=== PATIENT | female | born 1985 | race Caucasian/White ===

== ENCOUNTER → 2017-11-06 13:44 | Outpatient (CLI) | payer BC, SELFPAY ==
[2017-11-06 17:45] LABS: Chlamydia Trachomatis by PCR Negative (Negative); Neisserai gonorrhoeae by PCR Negative (Negative); Probe Check PASS; Sample Adequacy Control PASS; Specimen Processing Control PASS
[2017-11-12 14:38] LABS: HPV Reflexed? NOT INDICATED
== END ==
PROVIDERS: Visit Provider Obstetrics & Gynecology
DX: Z12.4 Encounter for screening for malignant neoplasm of cervix (principal); Z11.3 Encounter for screening for infections with a predominantly sexual mode of transmission
CPT/HCPCS: 87491; 87591; 88175; G0145

== ENCOUNTER → 2017-11-28 11:23 | Outpatient (CLI) | payer BC, SELFPAY ==
[2017-11-28 15:40] LABS: Absolute Lymphocyte Count 2.04 X10^3/ul (0.83-4.51); Absolute Neutrophil Count 6.6 X10^3/uL (2.0-7.7); Basophil# 0.03 X10^3/uL; Basophil% 0.3 % (0-1); Hematocrit 36.3 % (37-47); Hemoglobin 12.3 g/dl (12.0-15.0); Lymphocyte # 2.04 X10^3/ul (4.0); Lymphocyte % 20.7 % (19-41); Mean Corp Hgb Conc 33.9 g/gl (32-36); Mean Corpuscular Hgb 30.4 pg (27.0-32.0); Mean Corpuscular Volume 89.6 fL (81-99); Mean Platelet Vol. 10.8 fl (6.2-12.0); Monocyte% 10.1 % (0-10); Neutrophil # 6.58 X10^3/uL (2.7-7.7); Neutrophil % 66.7 % (47-70); POSITIVE COUNT NO; POSITIVE DIFFERENTIAL NO; POSITIVE MORPHOLOGY NO; Platelet Count 250 K/mm3 (150-450); RBC Distribution Width CV 13.4 % (11.6-14.6); RBC Distribution Width SD 43.5 fl (35.1-43.9); Red Blood Count 4.05 M/mm3 (4.2-5.4); White Blood Count 9.9 K/mm3 (4.4-11.0)
[2017-11-28 15:56] LABS: Thyroid Stim Hormone (TSH) 0.84 uIU/mL (0.358-3.74)
[2017-11-28 17:55] LABS: Color, Urine Yellow (Yellow); Glucose, Dipstick Normal (Normal); Ketone-Dipstick Negative (Negative); Leukocyte Esterase-Dipstick 25 /ul (Negative); Nitrite-Dipstick Negative (Negative); Occult Blood-Urine 10 /ul (Negative); Protein-Dipstick Negative (Negative); Specific Gravity, Urine 1.015 (1.002-1.030); Urine Bilirubin Dipstick Negative (Negative); Urine Clarity Sl. Cloudy (Clear); Urine Urobilinogen Normal (Normal)
[2017-11-28 18:11] LABS: Amphetamine Urine VISTA NEGATIVE (<1000 ng/mL); Barbiturate Urine VISTA NEGATIVE (< 200 ng/mL); Benzodiazepine Urine VISTA NEGATIVE (< 200 ng/mL); Cocaine Urine VISTA NEGATIVE (< 300 ng/mL); Ecstacy Urine VISTA NEGATIVE (< 500 ng/mL); Methadone Urine VISTA NEGATIVE (< 300 ng/mL); PCP Urine VISTA NEGATIVE (< 25 ng/mL); THC Urine VISTA NEGATIVE (< 50 ng/mL); Vista UDS pH Range 6
[2017-11-29 02:55] LABS: Prenatal RPR NONREACTIVE (NONREACTIVE)
[2017-11-29 09:34] LABS: HIV - WCH Non-Reactive (Nonreactive); Rubella IgG 474.6 IU/mL
[2017-11-30 08:58] LABS: HEPATITIS B SURFACE AG Negative (Negative); Hep C Antibodies 0.2 s/co ratio (0.0-0.9)
== END ==
PROVIDERS: Visit Provider Obstetrics & Gynecology
DX: Z34.81 Encounter for supervision of other normal pregnancy, first trimester (principal)
CPT/HCPCS: 36415; 80307; 81002; 84443; 85025; 86703; 86762; 86803; 87340

== ENCOUNTER → 2018-04-10 09:13 | Outpatient (CLI) | payer BC, SELFPAY ==
[2018-04-10 10:36] LABS: Hemoglobin 11.9 g/dl (12.0-15.0); Mean Corp Hgb Conc 33.1 g/gl (32-36); Mean Corpuscular Hgb 30.3 pg (27.0-32.0); Mean Corpuscular Volume 91.6 fL (81-99); Mean Platelet Vol. 9.6 fl (6.2-12.0); Platelet Count 200 K/mm3 (150-450); RBC Distribution Width CV 13.5 % (11.6-14.6); RBC Distribution Width SD 44.7 fl (35.1-43.9); Red Blood Count 3.93 M/mm3 (4.2-5.4); White Blood Count 8.9 K/mm3 (4.4-11.0)
[2018-04-10 10:37] LABS: Scan Indicated on CBC? Y/N NO
[2018-04-10 10:40] LABS: Glucose Challenge Gest 1H 50g 129 mg/dL (70-140)
== END ==
PROVIDERS: Visit Provider Obstetrics & Gynecology
DX: Z34.82 Encounter for supervision of other normal pregnancy, second trimester (principal)
CPT/HCPCS: 36415; 82950; 85027

== ENCOUNTER 2018-06-07 15:49 | Outpatient (CLI) | payer BC, SELFPAY ==
[2018-06-07 15:59] VITALS: BMI 42.5
--- NOTE | 2018-06-07 18:43 | OB.TRI.NOTE ---
History of Present Illness Date of Service: 06/07/18 Was patient seen by the physician?: No Reason For Visit: NST Date of Service: 06/07/18 Final TORY: 07/07/18 Final TORY Source: US <20 weeks Gestational age: 35 Weeks and 5 Days History of Present Illness: Polyhydramnios Allergies No Known Allergies Allergy (Verified 06/07/18 16:01) Physical Exam General: Alert, Oriented x3, Cooperative, No apparent distress Abdomen: Soft, Non Tender, Non-Distended, Gravid, Appropriate for Gestational Age Extremities:: No edema Neurological: Neuro grossly intact [employer]: Normal external genitalia Estimated gestational size: Appropriate for gestational size NST - FHR Rate Baby A Baseline: 130s Variability:: Moderate Accelerations:: 15 x 15 Decelerations:: None NST Reactive:: Yes, Appropriate for gestational age FHR Category:: Category I Uterine Activity:: irregular Impression/Plan Scheduled NST for polyhydramnios. NST CAT 1, reassuring. Followup as scheduled.
== END 2018-06-07 16:40 | disposition home or self-care (01) ==
LOC: WPOUT 15:50 → WP 15:51
PROVIDERS: Family Provider Family Medicine; PCP Family Medicine; Visit Provider Obstetrics & Gynecology
DX: O40.3XX0 Polyhydramnios, third trimester, not applicable or unspecified (principal); Z3A.35 35 weeks gestation of pregnancy
CPT/HCPCS: 59025

== ENCOUNTER → 2018-06-10 16:55 | Outpatient (CLI) | payer BC, SELFPAY ==
[2018-06-10 19:53] LABS: Group B Strep DNA By PCR Negative (Negative); Internal Control PASS; Probe Check PASS; Specimen Processing Control PASS
== END ==
PROVIDERS: Visit Provider Obstetrics & Gynecology
DX: Z36.85 Encounter for antenatal screening for Streptococcus B (principal)
CPT/HCPCS: 87081; 87653

== ENCOUNTER 2018-06-26 09:50 | Outpatient (CLI) | payer BC, SELFPAY ==
[2018-06-26 10:07] VITALS: BMI 44.6
--- NOTE | 2018-06-26 23:55 | OB.TRI.NOTE ---
- Problem List (1) 38 weeks gestation of Status: Acute (2) Decreased movement Status: Acute Qualifiers: Fetus number: single or unspecified fetus Trimester: third trimester Qualified Code(s): O36.8130 - Decreased movements, third trimester, not applicable or unspecified History of Present Illness Date of Service: 06/26/18 Was patient seen by the physician?: No Reason For Visit: DECREASE MOVEMENT Date of Service: 06/26/18 Final TORY: 07/07/18 Final TORY Source: US <20 weeks Gestational age: 38 Weeks and 3 Days Allergies No Known Allergies Allergy (Verified 06/07/18 16:01) NST - FHR Rate Baby A Baseline: 135 Variability:: Moderate Accelerations:: 15 x 15 Decelerations:: None NST Reactive:: Yes FHR Category:: Category I Uterine Activity:: 1/10 min Impression/Plan 33yo G1 @ 38 3/7wga with Cat I FHR - status reassuring -No labor complaints -d/c home
== END 2018-06-26 11:05 | disposition home or self-care (01) ==
LOC: WPOUT 09:52 → WP 09:53
PROVIDERS: Family Provider Family Medicine; PCP Family Medicine; Referring Provider Obstetrics & Gynecology; Visit Provider Obstetrics & Gynecology
DX: O36.8130 Decreased fetal movements, third trimester, not applicable or unspecified (principal); Z3A.38 38 weeks gestation of pregnancy
CPT/HCPCS: 59025; 59050; 99218; G0378

== ENCOUNTER 2018-07-02 16:00 | Inpatient (IN) | payer BC, SELFPAY ==
[2018-07-01 11:43] VITALS: BMI 44.5
[2018-07-01 11:55] LABS: ROM Internal Control Test YES-OK TO RESULT pt. (Internal QC)
[2018-07-01 11:56] LABS: ROM Patient Test POSITIVE (Negative)
[2018-07-01] MEDS: Lactated Ringers 1,000 ML 50 ML IV ×2 (12:40→19:43)
[2018-07-01 12:49] LABS: Hematocrit 40.8 % (37-47); Hemoglobin 13.8 g/dl (12.0-15.0); Mean Corp Hgb Conc 33.8 g/gl (32-36); Mean Corpuscular Hgb 30.5 pg (27.0-32.0); Mean Corpuscular Volume 90.3 fL (81-99); Mean Platelet Vol. 10.8 fl (6.2-12.0); Platelet Count 205 K/mm3 (150-450); RBC Distribution Width CV 13.6 % (11.6-14.6); RBC Distribution Width SD 44.4 fl (35.1-43.9); Red Blood Count 4.52 M/mm3 (4.2-5.4); White Blood Count 13.7 K/mm3 (4.4-11.0)
[2018-07-01 12:50] LABS: Scan Indicated on CBC? Y/N NO
[2018-07-01] MEDS: 0.9% Saline Lock 10 ML Syringe IV (14:10)
[2018-07-01] MEDS: Oxytocin 30 units/NS 500 ml 30 UNITS/500 ML IV.SOLN IV (15:32)
[2018-07-01] MEDS: fentaNYL-bupivacaine (epidural) 100 ML BAG EPIDURAL ×2 (19:36→23:53)
--- NOTE | 2018-07-01 21:09 | PCM.PN.BLA ---
Progress Note LABOR PROGRESS NOTE 39 1/7 wk SROM Comfortable w/ epidural. AVSS low gr temp noted x one. (breathing very heavily with painful UCs at that time) Pitocin at 6 mIU/min Meconium stained fluid noted now CX /high EFM/IFM: 130-140s avg variability Accels noted. Occasional ? subtle late, variables. UCs q 2-4 mins A/P: 39 1/7 wk SROM at 0600 07/01/18 Continue pitocin augmentation. Watch tolerance of labor.
[2018-07-01] MEDS: Ondansetron 4 MG/2 ML Vial IV (23:23)
[2018-07-02] MEDS: Lactated Ringers 1,000 ML 50 ML IV (01:06)
[2018-07-02] MEDS: Amnioinfusion- 0.9% NS 1,000 ML IV.SOLN. INTRA-UTER ×2 (01:14→06:00)
[2018-07-02] MEDS: Mag Hydrox/Al Hydrox/Simeth 30 ML UDC PO (04:23)
[2018-07-02] MEDS: fentaNYL-bupivacaine (epidural) 100 ML BAG EPIDURAL (04:23)
[2018-07-02] MEDS: Oxytocin 30 units/NS 500 ml 30 UNITS/500 ML IV.SOLN 334 UNITS IV (08:23)
--- NOTE | 2018-07-02 08:35 | PCM.OB.VAG ---
Vaginal Delivery Maternal Presentation: Spontaneous Rupture of Membranes Method of Induction: Pitocin Amniotic Membrane Rupture Type: Spontaneous at home Rupture of Membrane time: 07/01/18 Amniotic Fluid Description: Clear Final TORY: 07/07/18 Final TORY Source: US <20 weeks Gestational age: 39 Weeks and 2 Days [place] doctor who attended delivery (if requested by OB): Macri Plasencia Date of Procedure: 07/02/18 Pre-Operative Diagnosis: 39 2/7 wk SROM Post-Operative Diagnosis: Same Surgery/ Procedure Performed: Spontaneous Vaginal Delivery Anesthesiologist: Georgia Sexton Type of Anesthesia: Epidural Description of Procedure: of a carrillo viable male over intact perineum Head delivered SYLVIA. OP and nares bulb suctioned at perineum. Dr Plasencia, RT and nursery nurse present for delivery due to meconium stained fluid. Mild shoulder dystocia relieved with MacRoberts maneuver, Delivery of posterior shoulder, reduction of anterior arm. Infant to peds 2/2 meconium stained fluid, poor tone and weak resp effort at . Routine venous and arterial blood gases collected. PP exam; 1st deg posterior vaginal laceration repaired to hemostatic, intact with 3-0 vicryl Placenta delivered spont expulsion, expression. 3V normal appearing. Light mec stained. Intact Pt and infant tolerated delivery well. To recovery, stable condition EBL 350 cc Presentation: Vertex, SYLVIA Placental Delivery Description: Spontaneous, Expressed Placenta Disposition: [facility] Cord Vessel Description: 3 Vessels Cord Gases drawn per routine: ABG, VBG Cord Entanglement: None Drain: Salguero to straight drain Estimated Blood Loss: 350 A gender: Male (1 minute): 8 (5 minute): 9 Episiotomy Description: None Laceration: Midline, Vaginal Extension/lac, 1st degree - repaired with single fig of 8 stitch of 3-0 vicryl Medications given after delivery: IV Pitocin Complications: None
--- NOTE | 2018-07-02 08:42 | PCM.DCVAG ---
Discharge Diet: No Restrictions Discharge Activity: May Shower, May Take a Tub Bath Additional Activity Instructions:: Nothing in the vagina for 4-6 weeks. You may return to work/school in 6 weeks. Additional Instructions: If you experience any of the following, contact your healthcare provider. Bleeding that soaks a pad every hour for 2 hours Fever 100.4 or higher Unrelieved abdominal pain Problems urinating (including inability to urinate or burning while urinating). Visual changes Severe headache Flu-like symptoms Pain or redness in one of both of your breasts Pain, warmth, tenderness or swelling in your legs, especially the calf area Frequent nausea and vomiting Symptoms of depression or anxiety If you experience any of the following, call 911 or go to the nearest Emergency Room. Chest pain Problems breathing Seizure activity Partial or complete paralysis of a body part, slurred speech, weakness or drooping of the face, or a sudden inability to walk or hold your balance Allergies/Adverse Reactions: Allergies No Known Allergies Allergy (Verified 07/01/18 11:58) Medications to take at Discharge Famotidine [Pepcid] 10 mg PO BID 06/07/18 Vits [Prenatabs FA] 1 tablet PO DAILY 06/26/18 Please Follow Up With: Julieta Krueger MD - [phone] When: Call to make an appointment with your doctor in 6 weeks. Primary Care Physician: Uday Malin MD [Primary Care Provider] - Test Results: Test results from this visit will be discussed in further detail at your follow-up appointment, if applicable. Proposed Discharge Date: 07/04/18
--- NOTE | 2018-07-02 08:43 | DCINST_ITS ---
Discharge Diet: No Restrictions Discharge Activity: May Shower, May Take a Tub Bath Additional Activity Instructions:: Nothing in the vagina for 4-6 weeks. You may return to work/school in 6 weeks. Additional Instructions: If you experience any of the following, contact your healthcare provider. * Bleeding that soaks a pad every hour for 2 hours * Fever 100.4 or higher * Unrelieved abdominal pain * Problems urinating (including inability to urinate or burning while urinating). * Visual changes * Severe headache * Flu-like symptoms * Pain or redness in one of both of your breasts * Pain, warmth, tenderness or swelling in your legs, especially the calf area * Frequent nausea and vomiting * Symptoms of depression or anxiety If you experience any of the following, call 911 or go to the nearest Emergency Room. * Chest pain * Problems breathing * Seizure activity * Partial or complete paralysis of a body part, slurred speech, weakness or drooping of the face, or a sudden inability to walk or hold your balance Allergies/Adverse Reactions: Allergies No Known Allergies Allergy (Verified 07/01/18 11:58) Medications to take at Discharge Famotidine [Pepcid] 10 mg PO BID 06/07/18 Vits [Prenatabs FA] 1 tablet PO DAILY 06/26/18 Please Follow Up With: Julieta Krueger MD - [phone] When: Call to make an appointment with your doctor in 6 weeks. Primary Care Physician: Uday Malin MD [Primary Care Provider] - Test Results: Test results from this visit will be discussed in further detail at your follow- up appointment, if applicable. Proposed Discharge Date: 07/04/18
[2018-07-02] MEDS: Oxytocin 30 units/NS 500 ml 30 UNITS/500 ML IV.SOLN 167 UNITS IV (08:53)
[2018-07-02] MEDS: Acetaminophen 500 MG Tablet 1000 MG PO ×2 (09:24→21:43)
[2018-07-02] MEDS: Prenatal Vits Tablet 1 TABLET PO (11:01)
[2018-07-02] MEDS: Famotidine 20 MG Tablet 10 MG PO (11:01)
[2018-07-02 12:30] VITALS: BP 128/68; PULSE 92; RESP 16; TEMP 36.7; O2SAT 97
[2018-07-02 17:00] VITALS: BP 134/82; PULSE 90; RESP 18; TEMP 36.3
[2018-07-02] MEDS: Ibuprofen 600 MG Tablet PO (19:44)
[2018-07-02 19:45] VITALS: BP 134/82; PULSE 98; RESP 16; TEMP 37.2; O2SAT 97
[2018-07-02 21:35] VITALS: TEMP 37
[2018-07-02 23:50] VITALS: BP 140/78; PULSE 85; RESP 16; TEMP 36.1; O2SAT 97
[2018-07-03] VITALS (8 sets, daily range): BP systolic 129–156; BP diastolic 77–88; PULSE 76–96; RESP 17–18; TEMP 36.5–36.8; O2SAT 96–100
[2018-07-03] MEDS: Ibuprofen 600 MG Tablet PO ×3 (03:44→15:47)
--- NOTE | 2018-07-03 04:09 | NURSING ---
bp 150/82 pt denies headache/visual disturbances or epigastric pain, no clonus noted, and reflexes 1+
[2018-07-03] MEDS: Acetaminophen 500 MG Tablet 1000 MG PO (06:18)
[2018-07-03 06:33] LABS: Mucous, Urine 0 SEEN /hpf (<or=2+); Squamous Epithelial Cells - UA 0 SEEN /hpf (5-10)
[2018-07-03 06:36] LABS: Hematocrit 37.6 % (37-47); Hemoglobin 12.6 g/dl (12.0-15.0); Mean Corp Hgb Conc 33.5 g/gl (32-36); Mean Corpuscular Hgb 31.2 pg (27.0-32.0); Mean Corpuscular Volume 93.1 fL (81-99); Mean Platelet Vol. 10.8 fl (6.2-12.0); Platelet Count 180 K/mm3 (150-450); RBC Distribution Width CV 13.8 % (11.6-14.6); RBC Distribution Width SD 46.1 fl (35.1-43.9); Red Blood Count 4.04 M/mm3 (4.2-5.4); White Blood Count 15.5 K/mm3 (4.4-11.0)
[2018-07-03 06:42] LABS: Color, Urine Yellow (Yellow); Glucose, Dipstick Normal (Normal); Ketone-Dipstick Negative (Negative); Leukocyte Esterase-Dipstick 500 /ul (Negative); Nitrite-Dipstick Negative (Negative); Occult Blood-Urine 250 /ul (Negative); Protein-Dipstick 30 mg/dl (Negative); Scan Indicated on CBC? Y/N NO; Urine Bilirubin Dipstick Negative (Negative); Urine Clarity Clear (Clear); Urine Urobilinogen Normal (Normal)
[2018-07-03 06:46] LABS: Protein, Urine (Random) 23.7 mg/dL (<11.9); Protein:Creat Ratio 248 mg/g CRE (0-200)
[2018-07-03 06:49] LABS: AST(SGOT) 29 U/L (15-37); Alanine Aminotransfer ALT/SGPT 22 U/L (13-56); Creatinine, Serum 0.66 mg/dL (0.55-1.02); EST Glomerular Filtration Rate 111 mL/min (>60); Est Glom Filt Rate - Afr Amer 135 mL/min (>60); Estimated Creatinine Clearance 124.59 ml/min
[2018-07-03 06:55] LABS: International Normalized Ratio 1.1; Prothrombin Time (Protime)PT. 13.7 SECONDS (11.7-14.9)
[2018-07-03 06:56] LABS: Partial Thromboplast Time 33.9 Seconds (24.1-36.2)
[2018-07-03 07:05] LABS: Bacteria RARE /hpf (None Seen); Red Blood Cells-Urine 10-25 SEEN /hpf (0-5); White Blood Cells 5-10 SEEN /hpf (0-5)
--- NOTE | 2018-07-03 08:32 | PCM.PN.OB ---
Subjective: PPD#1 Doing well. Cramping, but pain control OK. Breast feeding well. No concerns voiced. No PIH sx, but BPs labile. PIH labs done. Objective: sitting up in bed, . - Physical Exam General: Alert, Oriented x3, Cooperative, No apparent distress HEENT: Atraumatic Neck: Supple Abdomen: Soft - Fundus firm NT at inferior to umbilicus Psych/Mental Status: Normal Affect Vital Signs Temp Pulse Resp BP Pulse Ox 97.7 F L 96 18 129/80 H 100 07/03/18 08:00 07/03/18 08:00 07/03/18 08:00 07/03/18 08:00 07/03/18 08:00 Oxygen Delivery Method Room Air Weight: 132.903 kg Body Mass Index (BMI) 44.5 Intake and Output for Last 24 Hours 07/01/18 07/02/18 07/03/18 23:59 23:59 23:59 Intake Total 480 / 480 3719 / 3719 Output Total 1100 / 1100 2650 / 2650 Balance -620 / -620 1069 / 1069 Laboratory Tests Past 24 Hrs 07/03/18 07/03/18 07/03/18 06:09 06:09 06:09 WBC 15.5 H RBC 4.04 L Hgb 12.6 Hct 37.6 MCV 93.1 MCH 31.2 MCHC 33.5 RDW 13.8 RDW Differential 46.1 H Plt Count 180 MPV 10.8 PT 13.7 INR 1.1 APTT 33.9 Creatinine 0.66 Estim Creat Clear Calc 124.59 Est GFR (MDRD) Af Amer 135 Est GFR (MDRD) Non-Af 111 Uric Acid 6.0 AST 29 ALT 22 Urine Color Urine Clarity Urine pH Ur Specific [place] Urine Protein Urine Glucose (UA) Urine Ketones Urine Occult Blood Urine Nitrite Urine Bilirubin Urine Urobilinogen Ur Leukocyte Esterase Urine RBC Urine WBC Ur Squamous Epith Cells Urine Bacteria Urine Mucus U Random Total Protein Urine Creatinine Protein/Creatinin Ratio 07/03/18 07/03/18 06:09 06:09 WBC RBC Hgb Hct MCV MCH MCHC RDW RDW Differential Plt Count MPV PT INR APTT Creatinine Estim Creat Clear Calc Est GFR (MDRD) Af Amer Est GFR (MDRD) Non-Af Uric Acid AST ALT Urine Color Yellow Urine Clarity Clear Urine pH 6.0 Ur Specific [place] 1.010 Urine Protein 30 H Urine Glucose (UA) Normal Urine Ketones Negative Urine Occult Blood 250 H Urine Nitrite Negative Urine Bilirubin Negative Urine Urobilinogen Normal Ur Leukocyte Esterase 500 H Urine RBC 10-25 SEEN Urine WBC 5-10 SEEN Ur Squamous Epith Cells 0 SEEN Urine Bacteria RARE Urine Mucus 0 SEEN U Random Total Protein 23.7 H Urine Creatinine 95.40 Protein/Creatinin Ratio 248 H Medical Necessity - Tobacco Use Smoking Status: Never smoker Assessment/Plan All Active Problems 38 weeks gestation of (Acute) Decreased movement (Acute) PPD#1 Stable Continue care.
[2018-07-03] MEDS: Prenatal Vits Tablet 1 TABLET PO (10:04)
--- NOTE | 2018-07-03 14:22 | NURSING ---
agree with student's assessment
--- NOTE | 2018-07-03 21:21 | NURSING ---
Pt. BP obtained and resulted 156/85. Pt. informed this RN she had elevated pressures earlier and thinks napping will help. BP cuff placed on pt. arm and set for q15 minutes. Will reassess and take appropriate measures as needed.
--- NOTE | 2018-07-03 21:38 | NURSING ---
Pt. blood pressured reassessed with result of 139/85. Pt. continues to deny blurred vision/vision changes, headache, or stomach pain. Will obtain another BP reading around 0000.
[2018-07-03] MEDS: Famotidine 20 MG Tablet 10 MG PO (22:04)
[2018-07-04 01:55] VITALS: BP 137/86; PULSE 92; RESP 16; TEMP 36.9; O2SAT 98
[2018-07-04] MEDS: Ibuprofen 600 MG Tablet PO (02:02)
--- NOTE | 2018-07-04 07:20 | PCM.PN.OB ---
Subjective: PPD#2 Doing well. no concerns voiced. - Physical Exam General: Alert, Oriented x3, Cooperative, No apparent distress HEENT: Atraumatic Neck: Supple Abdomen: Soft - Fundus firm NT approx at umbilicus Psych/Mental Status: Normal Affect Vital Signs Temp Pulse Resp BP Pulse Ox 98.5 F 92 16 137/86 H 98 07/04/18 01:55 07/04/18 01:55 07/04/18 01:55 07/04/18 01:55 07/04/18 01:55 Oxygen Delivery Method Room Air Weight: 132.903 kg Body Mass Index (BMI) 44.5 Intake and Output for Last 24 Hours 07/02/18 07/03/18 07/04/18 23:59 23:59 23:59 Intake Total 3719 / 3719 Output Total 2650 / 2650 Balance 1069 / 1069 Medical Necessity - Tobacco Use Smoking Status: Never smoker Assessment/Plan PPD#2 Stable Dischg home today. RTO in 6 wk for pp check, prn sooner.
[2018-07-04 10:00] VITALS: BP 130/86; PULSE 86; RESP 16; TEMP 36.2
[2018-07-04 14:57] VITALS: BP 124/88; PULSE 82; RESP 16; TEMP 36.1
== END 2018-07-04 15:00 | disposition home or self-care (01) | DRG 806 ==
PROVIDERS: Obstetrics & Gynecology; Admitting Provider Obstetrics & Gynecology; Family Provider Family Medicine; PCP Family Medicine; Referring Provider Obstetrics & Gynecology; Visit Provider Obstetrics & Gynecology
DX: O99.214 Obesity complicating childbirth (principal); E66.01 Morbid (severe) obesity due to excess calories; Z68.41 Body mass index [BMI] 40.0-44.9, adult; O77.0 Labor and delivery complicated by meconium in amniotic fluid; O36.8130 Decreased fetal movements, third trimester, not applicable or unspecified; O66.0 Obstructed labor due to shoulder dystocia; O70.0 First degree perineal laceration during delivery; Z79.899 Other long term (current) drug therapy; Z3A.39 39 weeks gestation of pregnancy; Z37.0 Single live birth
CPT/HCPCS: 59025; 59050; 81001; 82565; 82570; 84112; 84156; 84450; 84460; 84550; 85027; 85610; 85730; 86850; 86900; 99218; J7030; J7120; A4216; G0378; J2405

== ENCOUNTER → 2019-01-15 17:09 | Outpatient (CLI) | payer BC, SELFPAY ==
[2019-01-15 17:52] LABS: Vitamin D,25 Hydroxy 9.6 ng/mL (29.95-100.01)
[2019-01-15 17:58] LABS: T4 Free Direct 0.93 ng/dL (0.76-1.46); Thyroid Stim Hormone (TSH) 0.75 uIU/mL (0.358-3.74)
== END ==
PROVIDERS: Family Provider Family Medicine; PCP Family Medicine; Referring Provider Obstetrics & Gynecology; Visit Provider Obstetrics & Gynecology
DX: O99.345 Other mental disorders complicating the puerperium (principal); F39 Unspecified mood [affective] disorder
CPT/HCPCS: 82306; 84439; 84443

== ENCOUNTER 2019-03-30 11:36 | Emergency (ER) | payer BC, SELFPAY ==
[2019-03-30 11:37] VITALS: BP 158/98; PULSE 103; RESP 18; TEMP 36.8; O2SAT 100; BMI 40.4
--- NOTE | 2019-03-30 11:46 | CT_ITS ---
STUDY: CT ABDOMEN AND PELVIS WITHOUT CONTRAST REASON FOR EXAM: Female, 34 years old. 7 hour history of right lower quadrant pain with nausea and vomiting. RADIATION DOSAGE (If Supplied By Facility): CTDIvol = ( 15.42 ) mGy, DLP = ( 1286.96 ) mGycm TECHNIQUE: Transaxial images were obtained from the dome of the diaphragm to the symphysis pubis without oral contrast, and without intravenous contrast. Sagittal and coronal images were reconstructed. Individualized dose optimization techniques were used for this CT. COMPARISON: None. FINDINGS: Dense visualized fibroglandular tissue of both breasts. 1 cm bulla in the left lower lobe. Mild increased markings at the lung bases suggest mild atelectasis. The visualized portions of the heart are within normal limits. Mild hepatomegaly. Normal gallbladder and extrahepatic biliary system. Normal spleen. Normal pancreas. Normal bilateral adrenal glands. Normal right kidney. Normal left kidney. Normal visualized stomach. Normal small intestine. Normal colon. The appendix is visualized and appears normal. Small lymph nodes are seen within the mesentery in the right lower quadrant is suggestive of mesenteric adenitis. Normal abdominal aorta. Normal inferior vena cava. Normal retroperitoneum. Normal urinary bladder. Small follicles are seen in the ovaries bilaterally. There is a small umbilical hernia containing fat. Small bilateral benign appearing inguinal lymph nodes . There are degenerative changes of the visualized lumbar spine. CT/Abdomen/Pelvis W IV Cont ONLY IMPRESSION: Mild hepatomegaly. Findings suggestive of a mesenteric lymphadenitis in the right lower quadrant Small bilateral inguinal lymph nodes. Electronically Signed: Rocky Baker, at 13:07 EDT , Service support ,
--- NOTE | 2019-03-30 11:51 | ED.DCSUM_ITS ---
- ER Visit Summary Date of Service: 03/30/19 Chief Complaint: Abdominal pain History of Present Illness: The patient is a 34 F who presents to the emergency department with sudden onset colicky abdominal pain. Patient was in her normal state of health. She states that at 5 AM, she awoke with a sharp, stabbing pain in her right lower quadrant. She states the pain wax and wane but never fully go away. States that the onset of pain, she got acutely nauseated and vomited once. She states she is never had pain like this before. She denies history of ovarian cyst or kidney stone. She states now, it is more generalized throughout her abdomen. She is still feeling nauseated. She called her [employer], but was referred in for more evaluation because they cannot see her today. Physical Examination: Vital signs reviewed General: Well-nourished, well-developed Head: Normocephalic, atraumatic Eyes: Pupils equal and reactive, extraocular muscles intact Neck, supple, no lymphadenopathy Heart: Regular rate and rhythm Respiratory: No distress, clear bilaterally Abdomen: Soft, mildly tender diffusely without any focal tenderness, nondistended, no peritoneal signs Back: Nontender Extremities: Nontender, no edema, no cords Skin: Normal color no rash Neuro: Alert and oriented, no focal or lateralizing deficits Test Results: [] Emergency Department Course and Treatment: The patient had IV established. She was given fluids, analgesics, antiemetics. She did have some improvement of pain but then returned. Labs do demonstrate a leukocytosis but were otherwise unremarkable. Patient underwent CT imaging. There is no evidence of acute intra-abdominal process. There are some reactive lymph nodes in the right lower quadrant consistent with mesenteric adenitis. The appendix is visualized and appears normal. On reevaluation, the patient is comfortable. She was counseled on the duration of course and reasons to return. The patient will be discharged. Treatment Plan: [] Disposition: Discharge Impression: 1. Right lower quadrant pain-mesenteric adenitis This note was generated with [employer] dictation software. It may contain incorrect words, spelling, and punctuation that were not noted in review of the chart prior to signing ED Disposition - Plan for ED Patient: Disposition: Home or Assisted Living Instructions: Adenitis, Mesenteric Referrals: Uday Malin MD [STAFF PHYSICIAN] -
[2019-03-30 12:05] LABS: Absolute Neutrophil Count 14.5 X10^3/uL (2.0-7.7); Basophil# 0.02 X10^3/uL; Basophil% 0.1 % (0-1); Eosinophil# 0.16 X10^3/uL; Eosinophils% 0.9 % (0-5); Hematocrit 39.8 % (37-47); Hemoglobin 13.4 g/dl (12.0-15.0); Lymphocyte % 7.1 % (19-41); Mean Corp Hgb Conc 33.7 g/gl (32-36); Mean Corpuscular Hgb 29.9 pg (27.0-32.0); Mean Corpuscular Volume 88.8 fL (81-99); Mean Platelet Vol. 9.5 fl (6.2-12.0); Monocyte# 1.04 X10^3/uL; Monocyte% 6.1 % (0-10); Neutrophil # 14.52 X10^3/uL (2.7-7.7); Neutrophil % 85.7 % (47-70); Platelet Count 205 K/mm3 (150-450); RBC Distribution Width CV 13.1 % (11.6-14.6); RBC Distribution Width SD 42.5 fl (35.1-43.9); Red Blood Count 4.48 M/mm3 (4.2-5.4)
[2019-03-30 12:10] LABS: POSITIVE DIFFERENTIAL NO
[2019-03-30 12:11] LABS: POSITIVE COUNT NO; POSITIVE MORPHOLOGY NO
[2019-03-30] MEDS: 0.9% Normal Saline 1,000 ML 1000 ML IV (12:14)
[2019-03-30] MEDS: Morphine 4 MG/ML Syringe IV ×2 (12:14→13:01)
[2019-03-30] MEDS: Ondansetron 4 MG/2 ML Vial IV (12:14)
[2019-03-30 12:20] LABS: ALB/GLOB Ratio 0.9 RATIO (0.9-2.4); AST(SGOT) 11 U/L (15-37); Alanine Aminotransfer ALT/SGPT 21 U/L (13-56); Albumin, Serum 3.7 g/dL (3.2-5.0); Alkaline Phosphatase 84 U/L (45-117); Anion Gap 4 (5-15); BUN 14 mg/dL (7-18); BUN/Creat Ratio 21.6 RATIO (10-20); Calcium,Total 9.1 mg/dL (8.5-10.1); Chloride 104 mmol/L (98-107); Creatinine, Serum 0.65 mg/dL (0.55-1.02); EST Glomerular Filtration Rate 113 mL/min (>60); Est Glom Filt Rate - Afr Amer 136 mL/min (>60); Estimated Creatinine Clearance 129.85 ml/min; Glucose 90 mg/dL (74-106); Lipase 68 U/L (73-393); Potassium 3.8 mmol/L (3.5-5.1); Protein, Total 7.7 g/dL (6.4-8.2); Sodium Level 138 mmol/L (136-145)
[2019-03-30 12:29] LABS: Internal QC Validated? YES +Cl - CLEAR BKGD
[2019-03-30 12:33] LABS: Pregnancy, Urine Negative Negative
[2019-03-30 12:34] LABS: Color, Urine Yellow (Yellow); Glucose, Dipstick Normal (Normal); Ketone-Dipstick Negative (Negative); Leukocyte Esterase-Dipstick Negative /ul (Negative); Nitrite-Dipstick Negative (Negative); Occult Blood-Urine Negative /ul (Negative); Protein-Dipstick Negative (Negative); Urine Bilirubin Dipstick Negative (Negative); Urine Clarity Sl. Cloudy (Clear); Urine Urobilinogen Normal (Normal)
[2019-03-30 12:38] LABS: Bacteria RARE /hpf (None Seen); Mucous, Urine RARE /hpf (<or=2+); Red Blood Cells-Urine 0-5 SEEN /hpf (0-5); Squamous Epithelial Cells - UA 0-5 SEEN /hpf (5-10); White Blood Cells 0-5 SEEN /hpf (0-5)
[2019-03-30 13:13] VITALS: BP 128/79; PULSE 89; RESP 14; TEMP 37.1; O2SAT 97
[2019-03-30] MEDS: Ketorolac 30 MG/ML Syringe IV (13:41)
[2019-03-30 14:16] VITALS: BP 120/71; PULSE 98; RESP 16; O2SAT 95
== END 2019-03-30 14:20 | disposition home or self-care (01) ==
LOC: ED 12:05
PROVIDERS: Emergency Provider Emergency Medicine
DX: I88.0 Nonspecific mesenteric lymphadenitis (principal); R10.31 Right lower quadrant pain
CPT/HCPCS: 74177; 80053; 81001; 81025; 83690; 85025; 96361; 96374; 96375; 96376; 99283; J7030; Q9967; A4216; J2405

== ENCOUNTER → 2019-05-11 17:01 | Outpatient (CLI) | payer BC, SELFPAY ==
[2019-05-19 08:39] LABS: HPV HC, High Risk Negative (Negative)
[2019-05-19 08:43] LABS: HPV Reflexed? YES, CHARGE PATIENT
== END ==
PROVIDERS: Visit Provider Obstetrics & Gynecology
DX: Z12.4 Encounter for screening for malignant neoplasm of cervix (principal)
CPT/HCPCS: 87624; 88175; G0145

== ENCOUNTER → 2021-01-17 14:12 | Outpatient (CLI) | payer OTHER, SELFPAY ==
[2021-01-17 16:14] LABS: Vitamin D,25 Hydroxy 17.4 ng/mL
[2021-01-17 16:32] LABS: T4 Free Direct 1.04 ng/dL (0.76-1.46); Thyroid Stim Hormone (TSH) 1.12 uIU/mL (0.358-3.74)
[2021-01-20 11:42] LABS: HPV APTIMA, High Risk Negative (Negative)
== END ==
PROVIDERS: Visit Provider Student in an Organized Health Care Education/Training Program
DX: Z12.4 Encounter for screening for malignant neoplasm of cervix (principal); E55.9 Vitamin D deficiency, unspecified
CPT/HCPCS: 36415; 82306; 84439; 84443; 87624; 88175; G0145

== ENCOUNTER 2021-12-12 09:11 | Outpatient (CLI) | payer OTHER, SELFPAY ==
[2021-12-12 11:25] LABS: hCG Titer Quant., Serum < 1 mIU/mL (1-3)
== END 2021-12-12 23:59 | disposition home or self-care (01) ==
LOC: WOBLAB 09:11
PROVIDERS: Visit Provider Student in an Organized Health Care Education/Training Program
DX: O20.0 Threatened abortion (principal); Z3A.00 Weeks of gestation of pregnancy not specified
CPT/HCPCS: 36415; 84702

== ENCOUNTER 2022-01-08 21:22 | Emergency (ER) | payer OTHER, SELFPAY ==
[2022-01-08 21:23] VITALS: BP 176/87; PULSE 86; RESP 15; TEMP 36; O2SAT 97; BMI 44.3
--- NOTE | 2022-01-08 21:51 | EDS_ITS ---
HPI History of Present Illness Chief Complaint: Ear Problem Informant: patient Onset/Context/Timing Onset: Days (3) Context: Gradual Onset Timing: Continuous Quality: Aching, throbbing Location: Bilateral ears Worsened by: Nothing Relieved by: Nothing Narrative Narrative: Patient presents with bilateral ear pain that has been getting worse over the past 3 days. Patient describes her pain as aching and throbbing. Patient states it started in her right ear and is now in both ears. Patient admits to some decreased hearing. Patient admits to fevers up to 102 at home. Patient also admits to upper respiratory congestion, sore throat, cough, and chest pain. Patient admits to some nausea and vomiting after coughing. Patient also admits to mild headache. Patient states she went to an urgent care and was started on amoxicillin for ear infection. Patient states she is not any better. PFSH PFSH Medical History no medical history Home Medications sertraline 50 mg PO DAILY 03/30/19 [History Last Taken 03/30/19] amoxicillin-pot clavulanate 875 mg PO Q12H #20 tablet 01/08/22 [Rx Last Taken Unknown] fluticasone propionate [Flonase Allergy Relief] 1 spray INTRANASAL DAILY #16 g 01/08/22 [Rx Last Taken Unknown] Allergy/AdvReac Type Severity Reaction Status Date / Time No Known Allergies Allergy Verified 03/30/19 11:40 Social History Smoking Status: Never smoker ROS [facility] ED Constitutional Constitutional ED: Reports fever(s); Denies chills Eyes Eyes: Denies blurry vision or change in vision ENT ENT ED: Reports ear pain, rhinorrhea and sore throat Cardiovascular Cardiovascular: Reports chest pain; Denies palpitations Respiratory/Chest Respiratory/Chest: Reports cough and dyspnea Gastrointestinal Gastrointestinal: Reports nausea and vomiting Genitourinary Genitourinary ED: Denies dysuria or hematuria Musculoskeletal Musculoskeletal: Reports neck pain; Denies back pain Integumentary Denies abscess or rash Neurologic Neurologic: Reports headache(s); Denies weakness Allergic/Immunologic Allergic/Immunologic ED: Denies mouth swelling or urticaria EXAM Physical Exam Const Vital Signs: 01/08/22 21:23 Temperature 96.8 F L Temperature Source Temporal Pulse Rate 86 Respiratory Rate 15 Blood Pressure 176/87 H Blood Pressure Mean 116 Pulse Ox 97 Oxygen Delivery Method Room Air Positive well nourished, well developed and obese General Appearance ED: well developed and NAD Nutritional Appearance: obese HEENT Reports moist mucous membranes HEENT Narrative: There is erythema of the tympanic membranes bilaterally. There is no bulging noted. External auditory canals are clear. Neck supple and no JVD Neuro oriented x3, CN's II-XII intact bilaterally and no sensory deficits noted Sensorium / Orientation: alert Motor Exam: strength 5/5 throughout Psych mental status grossly normal MDM MDM MDM Narrative Medical decision making narrative: Patient was instructed to stop her amoxicillin. Patient was given prescriptions for Augmentin and Flonase. Patient was given a referral for primary care physician for follow-up care in 5 to 7 days. Patient was instructed to take Tylenol or ibuprofen as needed for pain. Patient understood and was agreeable with the plan. All questions were answered. Discharge Plan Triage Chief Complaint: Ear Problem ED Provider: Chris Holbrook Dx/Rx/DC Orders Clinical Impression: Bilateral acute otitis media, Morbid obesity with BMI of 40.0-44.9, adult Instructions: ED Otitis Media Antibiotic ... Prescriptions: New amoxicillin-pot clavulanate [amoxicillin-pot clavulanate] 875 MG tablet 875 mg PO Q12H Qty: 20 RF: 0 fluticasone propionate [Flonase Allergy Relief] 50 mcg/actuation spray,suspension 1 spray intranasal DAILY Qty: 16 RF: 0 No Action sertraline 50 MG tablet 50 mg PO DAILY RF: 0 Primary Care Provider: Care Physician,No Primary Referrals: Mitra Morgan DO [STAFF PHYSICIAN] - 5-7 Days Care Physician,No Primary [Primary Care Provider] - Disposition Disposition: Home, Self Care
[2022-01-08] MEDS: Amox/Clavulanate 875 MG Tablet PO (22:15)
== END 2022-01-08 22:23 | disposition home or self-care (01) ==
PROVIDERS: Emergency Provider Emergency Medicine; Visit Provider Emergency Medicine
DX: H66.93 Otitis media, unspecified, bilateral (principal); E66.01 Morbid (severe) obesity due to excess calories; Z68.41 Body mass index [BMI] 40.0-44.9, adult
CPT/HCPCS: 99283

== ENCOUNTER → 2022-04-24 | Outpatient (CLI) | payer OTHER, SELFPAY ==
[2022-04-24 12:29] LABS: Hematocrit 35.6 % (37-47); Hemoglobin 11.6 g/dL (12.0-15.0); Mean Corp Hgb Conc 32.6 g/dL (32-36); Mean Corpuscular Hgb 28.5 pg (27.0-32.0); Mean Corpuscular Volume 87.5 fL (81-99); Mean Platelet Vol. 9.8 fl (6.2-12.0); Platelet Count 316 K/mm3 (150-450); RBC Distribution Width CV 13.4 % (11.6-14.6); RBC Distribution Width SD 42.9 fl (35.1-43.9); Red Blood Count 4.07 M/mm3 (4.2-5.4); White Blood Count 12.1 K/mm3 (4.4-11.0)
[2022-04-24 13:15] LABS: Follicle Stimulating Hormone 5.6 mIU/mL; Luteinizing Hormone 6.3 mIU/mL; Prolactin 6.4 ng/mL
== END | disposition home or self-care (01) ==
LOC: WOBLAB 11:24
PROVIDERS: Visit Provider Student in an Organized Health Care Education/Training Program
DX: N93.9 Abnormal uterine and vaginal bleeding, unspecified (principal)
CPT/HCPCS: 36415; 83001; 83002; 84146; 85027

== ENCOUNTER 2022-05-17 08:33 | Day surgery (SDC) | payer OTHER, SELFPAY ==
[2022-05-17] VITALS (8 sets, daily range): BP systolic 130–161; BP diastolic 94–103; PULSE 16–97; RESP 16–20; TEMP 36.8–37.3; O2SAT 97–100; BMI 48.3
--- NOTE | 2022-05-17 | EMB_PTH ---
PATIENT: KAROLINA ANDERSON LOC: [facility] [place] U#:[id number] AGE/SX: 37/F ROOM: RE05/17/[address]: Dr. Ramila Malin DO : 1985 BED: DIS: 05/17/2022 SPEC #: [id number] RECD: 05/17/22 12:51 STATUS: KAMLA REHeike #: [id number] PAGE: 05/17/22 00:[address]: Ramila Malin DEPT: SURGICAL PATHOLOGY RECD BY: Darell Zurita ENTERED: 05/17/22 12:51 SP TYPE: ENDOM BX/C GUADALUPE DR: Dr. Clark Lim MD Tissues: Endometrium, NOS Procedures: Surgery Specimen Level IV HEADER OPERATION: Hysteroscopy, dilation and curettage PRE-OP DIAGNOSIS: Abnormal uterine bleeding TISSUE SUBMITTED: Endometrial curettings MICROSCOPIC DIAGNOSIS Endometrium, curettings: Scant benign glandular and squamous mucosa. AM:am 05/18/2022 MICROSCOPIC DESCRIPTION Slides are reviewed. GROSS DESCRIPTION Received is one container labeled with the patient name and designated endometrial curettings. The specimen consists of multple fragments of hemorrhagic that in aggregate measure 2.5 x 1.5 x 0.2 cm. The specimen is totally submitted in one cassette. /SJ:cc 05/17/22 TC:5 CPT:77366
--- NOTE | 2022-05-17 06:45 | HP.PCM.OB_ITS ---
History and Physical Date of Admission: 05/17/22 HPI: Planned for hysteroscopy, dilation and curettage for abnormal uterine bleeding. Heavy and prolonged menses. ROS: Const: Denies fatigue, fever, hot flashes, insomnia, weight gain and weight loss. CV: Denies irregular heartbeat, pain and shortness of breath. Resp: Denies difficulty breathing, cough and shortness of breath. : Denies abnormal bleeding, bloating, decreased interest in sex and pruritus. Lochia: Patient denies any discharge or clotting. Denies dysuria, frequency, hematuria, nocturia, urgency and urinary leakage. Neuro: Denies dizziness, fainting and seizures. Yony/Lymph: Denies easy bleeding and excessive bleeding. Allergy/Immuno: Denies new allergies. Medications: Vitamin D3 Complete 1 tab by mouth every day Allergies: NKDA PMH: 1. Obesity : (1).Parity: Full term (1), Living (1). Menstrual History:Menarche: Started At Age 15. LMP: 05/09/2022.Period Interval: Cycles Irregularly, Pt dx w/ PCOS at 21.Period Duration: Normally Last 7-9 Days. Period Flow: Heavy Throughout The Cycle.Menstrual Symptoms: Cramps During Menstruation, Clotting During Menstruation. Surgical Hx: Tonsillectomy W/ Adenoidectomy - (1994) Anesthesia Complications: None. Reviewed, no changes. FH: . (Illness) Father: Hypertension. Maternal Grandmother: Breast Cancer, dx around age 60. . (Maternal Grandmother Text) Maternal Aunt 1: Breast Cancer - dx around age 60. Reviewed, no changes. SH: Personal Habits:Tobacco Use: Patient has never smoked.Alcohol: Rarely consumes alcohol.Drug Use: Never Used Drugs. BP: 125/85 Ht: 68.5 5'8.50 Wt: 315lb Wt Prior: 318lb 10oz as of 04/24/22 Wt Dif: -3lb -10.0oz BMI: 47.2 LMP: 05/08/22 Exam: Const: Appears healthy and well developed. No signs of acute distress present. Alert and oriented x 3. Patient is well behaved and cooperative. Resp: Respiration rate is normal. Inspection of chest reveals AP is unremarkable and no chest wall deformity. CV: Rate is regular. Rhythm is regular. Assessment/Plan: Planned for hysteroscopy, dilation and curettage for abnormal uterine bleeding. All risks/benefits/alternatives discussed. Risks include, but are not limited to: risk of bleeding to the point of transfusion, infection, injury to surrounding tissue (bowel/bladder/major abdominal vessels/uterine perforation), VTE, ICU admission. Pt aware and consented. All questions answered.
[2022-05-17 08:52] LABS: Internal QC Validated? YES +Cl - CLEAR BKGD; Pregnancy, Urine Negative Negative
[2022-05-17] MEDS: Lactated Ringers 1,000 ML 15 ML IV (09:09)
--- NOTE | 2022-05-17 11:08 | DCINST_ITS ---
Discharge Instructions Diet Discharge Diet: No restrictions Activity Discharge Activity: Return to Normal Activity and May Shower May resume sexual activity in: 2 weeks Weight Bearing Status: Weight bearing as tolerated Lifting Restrictions: None Dressing / Incision Call your doctor if you observe: Fever of 101 or Higher, Change in Color, Inability to urinate, Using more than 1 pad per hour, Shortness of breath, Dizziness, Swelling in the ankles, Chest pain and Calf discomfort Follow Up Care Please Follow Up With: Ramila Malin DO When: 1-2 week postoperative visit Test Results: Test results from this visit will be discussed in further detail at your follow- up appointment, if applicable. Discharge Plan Admission Primary Reason for Your Visit: D&C Attending Provider: Ramila Malin Primary Care Provider: Clark Lim Discharge Orders/Prescriptions Prescriptions: No Action ergocalciferol (vitamin D2) 1,250 mcg (50,000 unit) capsule 1,250 mcg PO .TWICE WEEKLY Label Comments: TAKE 1 TABLET BY MOUTH TWICE WEEKLY [id number], THEN DECREASE TO 1 TABLET WEEKLY. Referrals / Follow Up: Clark Lim MD [Primary Care Provider] - Disposition Disposition (needs filled in before D/C Order can be placed): Home, Self Care
--- NOTE | 2022-05-17 11:08 | PCM.OPRPT ---
Report of Operation Date of Procedure: 05/17/22 Pre-Operative Diagnosis: Abnormal uterine bleeding Post-Operative Diagnosis: Abnormal uterine bleeding Surgery/Procedure Performed:: Hysteroscopy, dilation curettage Description of Surgical Findings:: Normal-appearing external genitalia. Minimal uterine descensus. Thickened endometrial lining. Type of Anesthesia: MAC Specimen's removed: Endometrial curettings Estimated Blood Loss (mL): 5 cc Fluids Replaced: 800cc Description of Procedure: Indication/risk/benefits: 37-year-old female with abnormal uterine bleeding. Plan for hysteroscopy, dilation curettage. All risk, benefits, alternatives discussed patient. Risk include but not limited to: Risk of bleeding when transfusion, infection, injury to surrounding tissue including bowel/bladder/uterine perforation, need VTE, ICU admission. Patient aware and consented. Procedure: Patient taken to the operating room and MAC anesthesia induced. Patient placed in the dorsal lithotomy position and prepped and draped in the usual sterile fashion. Weighted speculum placed in posterior vagina and Selby retractor used to visualize the cervix. Anterior lip of cervix grasped with Allis clamp. Cervix gradually dilated. Hysteroscope placed through cervical canal with above findings of endometrial cavity. Curettage completed in 360 degree manner. Allis clamp removed, cervix hemostatic. Weighted speculum removed. At the end of the procedure all needle, lap, sponge counts were correct. Urine output not measured. Complications none
--- NOTE | 2022-05-17 11:53 | SUR.PHASEII ---
VERY TEARFUL WHILE IN PACU; STATES REMEMBERS AWAKENING DURING PROCEDURE AND WAS SCARY. HAD DR TAN SPEAK WITH PATIENT. COMFORT & SUPPORT PROVIDED.
== END 2022-05-17 12:50 | disposition home or self-care (01) ==
LOC: SDC 08:35 → AC 08:36
PROVIDERS: Anesthesiology; PCP Family Medicine; Referring Provider Student in an Organized Health Care Education/Training Program; Visit Provider Student in an Organized Health Care Education/Training Program
PROC: 0UDB8ZZ Extraction of Endometrium, Via Natural or Artificial Opening Endoscopic (ICD-10-PCS; CPT 58558; principal; 2022-05-17 10:20)
DX: N93.9 Abnormal uterine and vaginal bleeding, unspecified (principal); Z68.42 Body mass index [BMI] 45.0-49.9, adult; E66.9 Obesity, unspecified; Z86.16 Personal history of COVID-19
CPT/HCPCS: 58558; 00952; 81025; 87426; 88305; C9803; J7120; J2405

== ENCOUNTER → 2022-10-19 | Outpatient (CLI) | payer OTHER, SELFPAY ==
[2022-10-19 11:40] LABS: Hematocrit 38.5 % (37-47); Hemoglobin 12.3 g/dL (12.0-15.0); Mean Corp Hgb Conc 31.9 g/dL (32-36); Mean Corpuscular Hgb 26.7 pg (27.0-32.0); Mean Corpuscular Volume 83.7 fL (81-99); Mean Platelet Vol. 9.1 fl (6.2-12.0); Platelet Count 260 K/mm3 (150-450); RBC Distribution Width CV 14.9 % (11.6-14.6); RBC Distribution Width SD 45.6 fl (35.1-43.9); White Blood Count 9.2 K/mm3 (4.4-11.0)
[2022-10-19 12:16] LABS: Ferritin 21 ng/mL (8-252)
== END | disposition home or self-care (01) ==
LOC: WOBLAB 11:32
PROVIDERS: PCP Family Medicine; Visit Provider Student in an Organized Health Care Education/Training Program
DX: N93.9 Abnormal uterine and vaginal bleeding, unspecified (principal)
CPT/HCPCS: 36415; 82728; 85027

== ENCOUNTER 2022-11-29 05:31 | Day surgery (SDC) | payer OTHER, SELFPAY ==
[2022-11-23 13:03] LABS: Hematocrit 33.1 % (37-47); Hemoglobin 10.6 g/dL (12.0-15.0); Mean Corpuscular Hgb 26.6 pg (27.0-32.0); Mean Corpuscular Volume 83.2 fL (81-99); Mean Platelet Vol. 9.8 fl (6.2-12.0); Platelet Count 332 K/mm3 (150-450); RBC Distribution Width CV 13.8 % (11.6-14.6); RBC Distribution Width SD 42.3 fl (35.1-43.9); Red Blood Count 3.98 M/mm3 (4.2-5.4); White Blood Count 8.7 K/mm3 (4.4-11.0)
[2022-11-23 13:36] LABS: Magnesium 2.2 mg/dL (1.6-2.6)
[2022-11-29] VITALS (10 sets, daily range): BP systolic 126–144; BP diastolic 71–86; PULSE 78–94; RESP 14–18; TEMP 36.3–37.2; O2SAT 95–100; BMI 44.9
[2022-11-29] MEDS: Magnesium 1 GM over 15 mins IV (06:01)
[2022-11-29] MEDS: Lactated Ringers 1,000 ML 40 ML IV (06:01)
[2022-11-29] MEDS: Acetaminophen 500 MG Tablet 1000 MG PO (06:02)
[2022-11-29] MEDS: dexAMETHasone 10 MG/ML Vial 8 MG IV (06:02)
[2022-11-29] MEDS: Gabapentin 600 MG Tablet PO (06:02)
[2022-11-29 06:07] LABS: Internal QC Validated? YES +Cl - CLEAR BKGD; Pregnancy, Urine Negative Negative
[2022-11-29 06:50] LABS: Bedside Glucose 203 mg/dL (74-106)
--- NOTE | 2022-11-29 07:05 | HP.PCM.OB_ITS ---
History and Physical Date of Admission: 11/29/22 HPI: 37-year-old female plan for robotic assisted total laparoscopic hysterectomy, bilateral salpingectomy, cystoscopy for abnormal uterine bleeding. Patient reports persistent heavy menstrual bleeding. Denies headache or vision changes, chest pain or shortness of breath, nausea or vomiting, diarrhea constipation, fevers or chills. [employer] history: status post Medical history: 1. Obesity 2. Anemia Surgical history: 1. Tonsillectomy and adenoidectomy 1994 2. Hysteroscopy, dilation and curettage 2021 No issues with anesthesia Medications: 1. Vitamin D 2. Medroxyprogesterone Allergies: No known drug allergies Family history: Breast cancer hypertension, noncontributory Social history: Denies tobacco, alcohol, drug use Review of system: Negative otherwise stated above Physical exam Blood pressure 137/71, heart rate 85, respiratory rate 18, temp 97.8 ?F, oxygen saturation 100% on room air General: No acute distress HEENT: Normal cephalic/atraumatic, PERRLA Cardio: Regular rate and rhythm Respiratory: Clear to auscultation bilaterally Abdomen: Soft, nontender Extremities: No edema Neurologic: Cranial nerves II through XII grossly intact, no focal deficits Musculoskeletal: Strength 5 out of 5 throughout all extremities Assessment/plan: 37-year-old female plan for robotic assisted total laparoscopic hysterectomy, bilateral salpingectomy, cystoscopy for abnormal uterine bleeding. All risk, benefits, alternatives were discussed with the patient. Risks include but are not limited to: Risk of bleeding to the point of transfusion, infection, injury to surrounding tissue including bowel/bladder potentially requiring prolonged Salguero catheter use/major abdominal vessels, VTE, ICU admission. Patient aware and consented.
[2022-11-29] MEDS: Insulin Lispro 100 UNIT/ML INSULN.PEN SC (07:20)
--- NOTE | 2022-11-29 07:30 | HYST_PTH ---
PATIENT: KAROLINA ANDERSON LOC: [facility] – [place] U#:[id number] AGE/SX: 37/F ROOM: RE11/29/[address]: Dr. Ramila Malin DO : 1985 BED: DIS: 11/29/2022 SPEC #: [id number] RECD: 11/29/22 13:34 STATUS: KAMLA REHeike #: [id number] PAGE: 11/29/22 07:[address]: Ramila Malin DEPT: SURGICAL PATHOLOGY RECD BY: Patricia Buchanan ENTERED: 11/30/22 07:23 SP TYPE: HYSTERECT OTHR DR: Dr. Clark Lim MD Tissues: Uterus, NOS Procedures: Surgery Specimen Level V HEADER OPERATION: ERAS, laparoscopic robotic assisted total hysterectomy, bilateral salpingectomy PRE-OP DIAGNOSIS: Abnormal uterine bleeding TISSUE SUBMITTED: Uterus, cervix, bilateral fallopian tubes MICROSCOPIC DIAGNOSIS Uterus, hysterectomy: Cervix ? nabothian cysts and mild chronic inflammation. Endometrium ? secretory endometrium with prominent benign stromal hyperplasia, consistent with hormonal effect. Myometrium ? no pathologic change. Right and left fallopian tubes ? complete cross-sections with benign paratubal cyst. AM:sonya 12/03/2022 MICROSCOPIC DESCRIPTION Slides are reviewed. GROSS DESCRIPTION Received in fixative is one container labeled with the patient's name and designated uterus, cervix, bilateral fallopian tubes. The specimen consists of a hysterectomy specimen consisting of uterus with cervix and detached bilateral fallopian tubes. The uterus with cervix weighs 153 gm and measures 11.0 x 8.0 x 4.5 cm. The endocervical canal measures 4.0 cm in length and the endocervical mucosa is dodson, glistening without any mass lesion. Sections of the cervix reveal multiple cysts filled with mucoid material. The triangular endometrial cavity measures 6.0 cm in length and up to 3.0 cm in width. The endometrium is dodson, glistening without ay mass lesion and measures up to 1.0 cm in thickness. Sections of uterine wall do not reveal any mass lesion and measures 2.0 cm in thickness. The detached fallopian tubes are not identified as right or left and measures 6.0 cm in length and 0.6 cm in diameter and 5.0 cm in length and 0.6 cm in diameter. Sections reveal unremarkable cut surfaces. One of the fallopian tube also shows a paratubal cyst measuring 1.0 cm in greatest dimension. Tear Down Matcher sections are submitted in ten cassettes as follows: 1 - anterior cervix, 2 - posterior cervix, 3 & 4 - anterior uterine wall, 5-8 - posterior uterine wall, 9 - one fallopian tube, 10 - second fallopian tube and paratubal cyst. / GEORGES:sonya 11/30/2022 TC:5 CPT: 07721
[2022-11-29] MEDS: Ondansetron 4 MG/2 ML Vial IV (09:35)
--- NOTE | 2022-11-29 09:44 | OP.PCM_ITS ---
Report of Operation Date of Procedure: 11/29/22 Pre-Operative Diagnosis: Abnormal uterine bleeding Post-Operative Diagnosis: Abnormal uterine bleeding Surgery/Procedure Performed:: Robotic assisted total laparoscopic hysterectomy, bilateral salpingectomy, cystoscopy Description of Surgical Findings:: Normal-appearing external genitalia. Normal-appearing bilateral fallopian tubes, ovaries, uterus and cervix Type of Anesthesia: General Specimen's removed: Uterus, cervix, bilateral fallopian tubes Estimated Blood Loss (mL): 50 cc Fluids Replaced: 1500 cc Description of Procedure: Indication/risk/benefits: 37-year-old female with persistent heavy abnormal uterine bleeding plan for robotic assisted total laparoscopic hysterectomy, bilateral salpingectomy, cystoscopy. All risk, benefits, alternatives were discussed with the patient.? Risks include but are not limited to: Risk of bleeding to the point of transfusion, infection, injury to surrounding tissue including bowel/bladder potentially requiring prolonged Salguero catheter use/major abdominal vessels, VTE, ICU admission.? Patient aware and consented. Procedure: Patient taken to the operating room and placed under general anesthesia. Patient placed in the dorsal lithotomy position and prepped and draped in the usual sterile fashion. Salguero catheter placed. Weighted speculum placed in the posterior vagina and right angle retractor used to visualize the cervix. Anterior lip of the cervix grasped with single-tooth tenaculum. Uterus sounded to 12 cm. Cervix noted to be dilated. Ronlll-ip-oizzk stitches placed at 3 and 9 o'clock position on the cervix. Medium manipulator placed. Weighted speculum removed. Gloves were changed and attention turned to the anterior abdominal wall. Supraumbilical vertical incision made with scalpel and trocar placed under direct visualization. Abdomen was insufflated. Left lower quadrant port placed under direct visualization. Port at Yip's point placed. Right lower quadrant incision made and port placed. Subcutaneous bleeding noted at this trocar site. Trocar was removed and stitch was placed through incision. A new right incision was made lateral to this site. Trocar placed. Robotic trocar placed at the supraumbilical site. Robot was docked. Inspection of abdominal cavity noted findings above. Both ureters identified. Left fallopian tube identified from cornua to fimbriated end and removed along mesosalpinx. Right fallopian tube then identified from cornua to fimbriated end and removed along the mesosalpinx. Both fallopian tubes removed from the abdominal cavity. Right round ligament coagulated and cut. Dissection carried down the anterior leaf of the broad ligament to the vesicouterine peritoneum creating a bladder flap. Left round ligament coagulated and cut and dissection towards the anterior uterus and cervix completed in a similar fashion using sharp and blunt dissection. Left utero-ovarian ligament coagulated cut. Dissection carried down the left side of the uterus to the level of the uterine arteries. Right utero-ovarian ligament coagulated and cut and dissection carried down the right side of the uterus to the level of the uterine arteries. Uterus retroverted and further dissection of the bladder away from the anterior uterus and cervix was completed allowing the bladder to fully fall away from this area. Right uterine arteries coagulated and cut perpendicularly and then parallel to the uterus and cervix, allowing the uterine arteries to fall away from the colpotomy cup. Left uterine arteries dissected in a similar fashion. Anterior colpotomy made and completed circumferentially. Uterus and cervix removed from the vagina. Colpotomy closed with a running V lock stitch starting at the right angle. Intra-abdominal pressure decreased to 8 mmHg. Cystoscopy then completed after Salguero catheter removed. Findings on cystoscopy noted intact bladder dome with bubble, and bilateral ureteral jets. Cystoscope removed after bladder was drained. Pelvis suction irrigated and Stiven placed along the colpotomy clos ure, hemostasis noted. Robot undocked and insufflation stopped. Trocars removed. Skin closed with subcuticular stitch and skin glue. Suture removed at the first right lower quadrant trocar site, hemostasis noted and subcuticular stitch was placed. At the end of the procedure all needle, lap, sponge counts were correct. Urine output: 300 cc clear urine
--- NOTE | 2022-11-29 09:46 | DCINST_ITS ---
Discharge Instructions Diet Discharge Diet: No restrictions Activity Discharge Activity: Return to Normal Activity and May Shower May resume sexual activity in: 6-8 weeks Weight Bearing Status: Weight bearing as tolerated Lifting Restrictions: No greater than 10 pounds Dressing / Incision Call your doctor if your incision/area has: Continuous Slow Oozing, Increased Redness and Foul Smelling Discharge Call your doctor if you observe: Fever of 101 or Higher, Inability to urinate, Inability to have a bowel movement, Using more than 1 pad per hour, Shortness of breath, Swelling in the ankles, Chest pain and Uncontrolled pain Cleanse incision/area with: Soap & Water and Keep Dressing Clean & Dry Follow Up Care Please Follow Up With: Ramila Malin DO When: 2 weeks post operative appointment Test Results: Test results from this visit will be discussed in further detail at your follow- up appointment, if applicable. Discharge Plan Admission Primary Reason for Your Visit: Hysterectomy Attending Provider: Ramila Malin Primary Care Provider: Clark Lim Discharge Orders/Prescriptions Prescriptions: New oxycodone 5 mg tablet 5 mg PO Q6H PRN (Reason: pain (scale score 7-10)) 5 Days Qty: 24 0RF Continued ergocalciferol (vitamin D2) 1,250 mcg (50,000 unit) capsule 1,250 mcg PO QWEEK Label Comments: TAKE 1 TABLET BY MOUTH TWICE WEEKLY [id number], THEN DECREASE TO 1 TABLET WEEKLY. Discontinued medroxyprogesterone 10 mg tablet 20 mg PO DAILY Label Comments: TAKE 2 TABLETS BY MOUTH EVERY DAY Other Ambulatory Orders: CBC-Complete Blood Cnt No Diff (Routine) Timeframe: [id number] Facility: [facility] - Location: Laboratory Ordered By: Dr. Ramila Malin ,Urine (Routine) Timeframe: [id number] Facility: [facility] - Location: Laboratory Ordered By: Dr. Anish Howard Type & Screen - PAT ONLY (Routine) Timeframe: [id number] Facility: [facility] - Location: Laboratory Ordered By: Dr. Ramila Malin Referrals / Follow Up: Clark Lim MD [Primary Care Provider] - Disposition Disposition (needs filled in before D/C Order can be placed): Home, Self Care
[2022-11-29 10:21] LABS: Bedside Glucose 112 mg/dL (74-106)
[2022-11-29] MEDS: oxyCODONE 5 MG Tablet PO (12:42)
== END 2022-11-29 15:01 | disposition home or self-care (01) ==
LOC: SDC 05:32 → AC 05:32
PROVIDERS: Anesthesiology; PCP Family Medicine; Referring Provider Student in an Organized Health Care Education/Training Program; Visit Provider Student in an Organized Health Care Education/Training Program
PROC: 0UT90ZZ Resection of Uterus, Open Approach (ICD-10-PCS; CPT 58552; principal; 2022-11-29 07:10)
DX: N83.8 Other noninflammatory disorders of ovary, fallopian tube and broad ligament (principal); N88.8 Other specified noninflammatory disorders of cervix uteri; G47.30 Sleep apnea, unspecified; Z86.16 Personal history of COVID-19; Z79.899 Other long term (current) drug therapy
CPT/HCPCS: 58552; S2900; 52000; 00840; 36415; 81025; 82962; 83735; 85027; 86850; 86900; 86901; 88307; J7120; J2405; J3475